=== PATIENT | female | born 1975 | race Caucasian/White ===

== ENCOUNTER 2022-06-02 19:20 | Emergency (ER) | payer SELFPAY ==
[~2022-06-02] VITALS: Ht 162.6 cm; Wt 71.2 kg
[2022-06-02] MEDS ORDERED: IBUPROFEN 200 MG TAB PO ONE (19:30)
[2022-06-02] MEDS ORDERED: ULTRAM 50MG50 MG PO (19:48)
[2022-06-02] MEDS ORDERED: IBUPROFEN200 MG PO (19:48)
[2022-06-02] MEDS ORDERED: MUPIROCIN 2% OINT 22 GM TUBE TOP ONE (20:00)
[2022-06-02] MEDS ORDERED: BACITRACIN ZINC 0.9GM TP ONE (20:09)
[2022-06-02] MEDS ORDERED: DOXYCYCLINE HY100 MG PO (21:09)
== END 2022-06-02 21:00 | disposition home or self-care (01) ==
LOC: FSED 19:26
DX: S60.511A Abrasion of right hand, initial encounter (principal); S60.412A Abrasion of right middle finger, initial encounter; S60.414A Abrasion of right ring finger, initial encounter; W01.198A Fall on same level from slipping, tripping and stumbling with subsequent striking against other object, initial encounter; Y93.01 Activity, walking, marching and hiking; Y92.89 Other specified places as the place of occurrence of the external cause; N28.9 Disorder of kidney and ureter, unspecified; F17.210 Nicotine dependence, cigarettes, uncomplicated
CPT/HCPCS: 99283